=== PATIENT | female | born 1995 | race Caucasian/White ===

== ENCOUNTER 2025-01-01 14:04 | Emergency (ER) | payer OTHER ==
[~2025-01-01] VITALS: Ht 167.6 cm; Wt 56.2 kg
[2025-01-01] MEDS ORDERED: SODIUM CHLORIDE 0.9% 500 ML IV ONE (14:35)
[2025-01-01] MEDS ORDERED: Ondansetron Hydrochloride 4 MG/2 ML VIAL IV ONE ×2 (14:35→16:55)
[2025-01-01 14:47] LABS: BASO # 0.1 10*3/uL (0.0-0.1); BASO % 0.7 % (0.0-1.0); EOS # 0.0 10*3/uL (0.0-0.4); EOS % 0.5 % (1.0-4.0); MEAN CELL VOLUME 85.4 fl (81.0-99.0); MEAN CORPUSCULAR HGB 27.4 pg (27.0-31.0); MEAN PLATELET VOLUME 11.4 fl (9.6-12.3); MONO # 0.9 10*3/uL (0.1-1.0); MONO % 9.8 % (3.0-9.0); NEUT # 5.4 10*3/uL (2.3-7.9); NEUT % 62.6 % (47.0-73.0); NUCLEATED RED BLOOD CELL 0.0 % (0.0-0.0); NUCLEATED RED BLOOD CELL 0.0 10*3/uL (0.0-0.0); PLATELET COUNT AUTOMATED 316 10*3/uL (130-400); RED CELL DISTRI WIDTH 13.9 % (0-14.5)
[2025-01-01 15:15] LABS: BUN 14 mg/dl (9-23); SGPT/ALT 25 U/L (5-49)
[2025-01-01 16:00] LABS: BILIRUBIN 1+ (Negative); BLOOD Negative (Negative); CLARITY Cloudy (Clear); COLOR Dark Yellow (Yellow); KETONE Trace (Negative); LEUKO ESTERASE 1+ (Negative); NITRITE Negative (Negative); PH 6.0 (4.5-8.0); SPECIFIC GRAVITY >= 1.030 (1.001-1.030); UROBILINOGEN 1.0 E.U./dl (0.0-1.0)
[2025-01-01 16:09] LABS: BACTERIA 1+; EPITHELIAL CELLS 16-20; MUCOUS 3+
[2025-01-01] MEDS ORDERED: Ondansetron4 MG PO (17:44)
[2025-01-01] MEDS ORDERED: MACROBID100 M1 PO (17:44)
[2025-01-01] MEDS ORDERED: REGLAN10 M1 PO (17:44)
[2025-01-02] MEDS ORDERED: PREDNISONE20 M1 PO (14:02)
[2025-01-02] MEDS ORDERED: METHOCARBAMOL750 M1 PO (14:02)
[2025-01-02] MEDS ORDERED: PROVERA10 MG PO (14:02)
== END 2025-01-01 17:49 ==
LOC: ED 14:04
PROVIDERS: Emergency Medicine
DX: N39.0 Urinary tract infection, site not specified (principal); B34.9 Viral infection, unspecified; R10.30 Lower abdominal pain, unspecified

== ENCOUNTER 2025-01-02 13:49 | Emergency (ER) | payer OTHER ==
[~2025-01-02] VITALS: Ht 167.6 cm; Wt 56.2 kg
[~2025-01-02 13:49] MED LIST: MACROBID100 M1 PO; Ondansetron4 MG PO; REGLAN10 M1 PO
[2025-01-02] MEDS ORDERED: PREDNISONE20 M1 PO (14:02)
[2025-01-02] MEDS ORDERED: PROVERA10 MG PO (14:02)
[2025-01-02] MEDS ORDERED: METHOCARBAMOL750 M1 PO (14:02)
[2025-01-02] MEDS ORDERED: Dexamethasone Sodium Phospha 20 MG/5 ML VIAL IM ONE (14:05)
[2025-01-02] MEDS ORDERED: METHOCARBAMOL 750 MG TAB PO ONE ×2 (14:05→14:33)
[2025-01-02] MEDS ORDERED: Dexamethasone Sodium Phospha 20 MG/5 ML VIAL ONE (14:33)
== END 2025-01-02 14:05 ==
LOC: ED 13:49
DX: N92.0 Excessive and frequent menstruation with regular cycle (principal); M54.32 Sciatica, left side